=== PATIENT | male | born 1985 | race Caucasian/White ===

== ENCOUNTER 2018-07-04 16:49 | Emergency (ER) | payer MEDICARE, MEDICAID ==
[~2018-07-04] VITALS: Ht 177.8 cm; Wt 85.0 kg
[2018-07-04 17:13] VITALS: BP 100/55
== END 2018-07-04 17:48 | disposition home or self-care (01) ==
LOC: ER 17:46
DX: S01.81XD Laceration without foreign body of other part of head, subsequent encounter (principal); F17.200 Nicotine dependence, unspecified, uncomplicated; X58.XXXD Exposure to other specified factors, subsequent encounter
CPT/HCPCS: 99281

== ENCOUNTER 2022-10-03 18:21 | Inpatient (IN) | payer MEDICARE, MEDICAID ==
[~2022-10-03] VITALS: Ht 182.9 cm; Wt 103.4 kg
[2022-10-03] MEDS ORDERED: KETOROLAC 30MG/ML VIAL IV STA (18:34)
[2022-10-03] MEDS ORDERED: SODIUM CHLORIDE 0.9% 1000ML BAG (SEPSIS BOLUS) IV ONE (18:45)
[2022-10-03] MEDS: AMPICILLIN SOD/SULBACTAM NA 3 G in SODIUM CHLORIDE 0.9% 100 ML IV SCH (18:45)
[2022-10-03 19:37] LABS: CHLORIDE 104 mEq/L (98-107)
[2022-10-03 19:38] LABS: BASOPHILS % 0.5 % (0.0-2.0); HEMATOCRIT. 47.6 % (42.0-52.0); HEMOGLOBIN. 16.5 g/dL (14.0-18.0); LYMPHOCYTES % 9.5 % (20.0-50.0); MEAN CORPUSCULAR HEMOGLOBIN 32.8 pg (28.0-32.0); MEAN CORPUSCULAR VOLUME 94.7 fL (80.0-94.0); MEAN PLATELET VOLUME 8.6 fl (7.4-10.4); MONOCYTES % 4.1 % (2.0-8.0); NEUTROPHILS % 84.9 % (40.0-76.0); PLATELET 173 x1000/uL (130-400); RED BLOOD CELL COUNT 5.03 mill/uL (4.7-6.1); RED CELL DISTRIBUTION WIDTH 13.2 % (11.6-14.6)
[2022-10-03 19:55] LABS: CREATINE KINASE 199 IU/L (39-308); ETHANOL BLOOD < 10 mg/dL
[2022-10-03 20:05] LABS: INR 1.1; PROTHROMBIN TIME 11.4 sec (9.6-11.0)
[2022-10-03] MEDS ORDERED: KETOROLAC 30MG/ML VIAL IV NR (23:00)
[2022-10-04] MEDS: AMPICILLIN SOD/SULBACTAM NA 3 G in SODIUM CHLORIDE 0.9% 100 ML IV SCH ×3 (01:01→21:10)
[2022-10-04 08:44] LABS: CLARITY URINE CLEAR (CLEAR); COLOR URINE YELLOW (YELLOW); PROTEIN URINE NEGATIVE (NEGATIVE); SPECIFIC GRAVITY URINE 1.025 (1.005-1.030)
[2022-10-04 08:45] LABS: KETONES URINE TRACE (NEGATIVE); LEUKOCYTE ESTERASE URINE NEGATIVE (NEGATIVE); NITRITE URINE NEGATIVE (NEGATIVE); OCCULT BLOOD URINE NEGATIVE (NEGATIVE)
[2022-10-04 08:49] LABS: *AMPHETAMINES SCREEN URINE NEGATIVE (NEGATIVE); *BARBITURATES SCREEN URINE NEGATIVE (NEGATIVE); *BENZODIAZEPINES SCREEN URINE NEGATIVE (NEGATIVE); *COCAINE SCREEN URINE NEGATIVE (NEGATIVE); CANNABINOID URINE SCREEN PRESUMTIVE POSITIVE (NEGATIVE); METHADONE URINE SCREEN NEGATIVE (NEGATIVE); OPIATES URINE SCREEN NEGATIVE (NEGATIVE); PHENCYCLIDINE URINE SCREEN NEGATIVE (NEGATIVE)
[2022-10-04] MEDS ORDERED: ONDANSETRON HCL 4MG/2ML INJ IV PRN (11:00)
[2022-10-04] MEDS ORDERED: CLONIDINE 0.1MG TABLET PO PRN (11:00)
[2022-10-04] MEDS ORDERED: IPRATROPIUM/ALBUTEROL 0.5-3(2.5)MG/3ML NEB HHN PRN (11:00)
[2022-10-04] MEDS: ACETAMINOPHEN 325MG TABLET PO PRN ×2 (14:52→21:19)
[2022-10-04 15:45] VITALS: BP 114/74
[2022-10-04 16:00] VITALS: BP 97/57
[2022-10-04] MEDS ORDERED: AMPICILLIN 2,000 MG in SODIUM CHLORIDE 0.9% 100 ML IV SCH (16:30)
[2022-10-04 20:00] VITALS: BP 122/59
[2022-10-04] MEDS ORDERED: TETANUS AND DIPHTHERIA TOX/PF 0.5ML SYR (ADULT) IM ONE (21:00)
[2022-10-05] VITALS: BP 108/73
[2022-10-05] MEDS: DIPHENHYDRAMINE 50MG/ML VIAL IV PRN (02:50)
[2022-10-05 04:00] VITALS: BP 118/65
[2022-10-05] MEDS: AMPICILLIN SOD/SULBACTAM NA 3 G in SODIUM CHLORIDE 0.9% 100 ML IV SCH ×5 (05:09→17:31)
[2022-10-05 08:00] VITALS: BP 114/68
[2022-10-05 12:00] VITALS: BP 111/73
[2022-10-05] MEDS: ACETAMINOPHEN 325MG TABLET PO PRN (12:25)
[2022-10-05 16:00] VITALS: BP 114/73
[2022-10-05] MEDS ORDERED: IOHEXOL-300 100 ML BOTTLE ONE (16:29)
[2022-10-05] MEDS ORDERED: TETANUS AND DIPHTHERIA TOX/PF 0.5ML SYR (ADULT) IM ONE (17:00)
[2022-10-05 17:34] LABS: BASOPHILS % 0.3 % (0.0-2.0); HEMATOCRIT. 46.6 % (42.0-52.0); HEMOGLOBIN. 15.7 g/dL (14.0-18.0); MEAN CORPUSCULAR HEMOGLOBIN 32.3 pg (28.0-32.0); MEAN CORPUSCULAR VOLUME 95.9 fL (80.0-94.0); MEAN PLATELET VOLUME 8.2 fl (7.4-10.4); MONOCYTES % 8.3 % (2.0-8.0); NEUTROPHILS % 75.4 % (40.0-76.0); PLATELET 160 x1000/uL (130-400); RED BLOOD CELL COUNT 4.86 mill/uL (4.7-6.1)
[2022-10-05 17:49] LABS: CHLORIDE 106 mEq/L (98-107)
[2022-10-06] MEDS: ACETAMINOPHEN 325MG TABLET PO PRN ×3 (02:13→22:18)
[2022-10-06] MEDS: DIPHENHYDRAMINE 50MG/ML VIAL IV PRN ×2 (02:13→22:18)
[2022-10-06 05:45] LABS: BASOPHILS % 0.6 % (0.0-2.0); EOSINOPHILS % 2.5 % (0.0-5.0); HEMATOCRIT. 45.1 % (42.0-52.0); HEMOGLOBIN. 15.4 g/dL (14.0-18.0); LYMPHOCYTES % 17.4 % (20.0-50.0); MEAN CORPUSCULAR HEMOGLOBIN 32.4 pg (28.0-32.0); MEAN CORPUSCULAR VOLUME 94.6 fL (80.0-94.0); MEAN PLATELET VOLUME 8.3 fl (7.4-10.4); MONOCYTES % 7.9 % (2.0-8.0); NEUTROPHILS % 71.6 % (40.0-76.0); PLATELET 165 x1000/uL (130-400); RED BLOOD CELL COUNT 4.76 mill/uL (4.7-6.1); RED CELL DISTRIBUTION WIDTH 12.6 % (11.6-14.6)
[2022-10-06] MEDS: AMPICILLIN SOD/SULBACTAM NA 3 G in SODIUM CHLORIDE 0.9% 100 ML IV SCH ×5 (06:00→18:58)
[2022-10-06 08:00] VITALS: BP 113/63
[2022-10-06 12:00] VITALS: BP 121/80
[2022-10-06 16:00] VITALS: BP 111/70
[2022-10-06 20:00] VITALS: BP 121/74
[2022-10-07] VITALS: BP 100/62
[2022-10-07] MEDS: AMPICILLIN SOD/SULBACTAM NA 3 G in SODIUM CHLORIDE 0.9% 100 ML IV SCH ×5 (06:00→17:19)
[2022-10-07 06:29] LABS: BASOPHILS % 0.6 % (0.0-2.0); EOSINOPHILS % 2.9 % (0.0-5.0); HEMATOCRIT. 48.4 % (42.0-52.0); HEMOGLOBIN. 16.8 g/dL (14.0-18.0); LYMPHOCYTES % 21.8 % (20.0-50.0); MEAN CORPUSCULAR HEMOGLOBIN 32.8 pg (28.0-32.0); MEAN CORPUSCULAR VOLUME 94.6 fL (80.0-94.0); MONOCYTES % 7.1 % (2.0-8.0); NEUTROPHILS % 67.6 % (40.0-76.0); PLATELET 182 x1000/uL (130-400); RED BLOOD CELL COUNT 5.11 mill/uL (4.7-6.1); RED CELL DISTRIBUTION WIDTH 12.9 % (11.6-14.6)
[2022-10-07 12:00] VITALS: BP 95/53
[2022-10-07 16:00] VITALS: BP 111/53
[2022-10-07 20:00] VITALS: BP 110/76
[2022-10-07] MEDS: DIPHENHYDRAMINE 50MG/ML VIAL IV PRN (21:27)
[2022-10-07] MEDS: ACETAMINOPHEN 325MG TABLET PO PRN (21:27)
[2022-10-08] MEDS: AMPICILLIN SOD/SULBACTAM NA 3 G in SODIUM CHLORIDE 0.9% 100 ML IV SCH ×3 (00:32→11:21)
[2022-10-08 04:00] VITALS: BP 107/65
[2022-10-08 07:58] LABS: BASOPHILS % 0.8 % (0.0-2.0); EOSINOPHILS % 3.6 % (0.0-5.0); HEMOGLOBIN. 16.4 g/dL (14.0-18.0); LYMPHOCYTES % 20.9 % (20.0-50.0); MEAN CORPUSCULAR HEMOGLOBIN 32.7 pg (28.0-32.0); MEAN CORPUSCULAR VOLUME 93.6 fL (80.0-94.0); MEAN PLATELET VOLUME 7.9 fl (7.4-10.4); MONOCYTES % 6.8 % (2.0-8.0); NEUTROPHILS % 67.9 % (40.0-76.0); PLATELET 181 x1000/uL (130-400); RED BLOOD CELL COUNT 5.02 mill/uL (4.7-6.1); RED CELL DISTRIBUTION WIDTH 12.9 % (11.6-14.6)
[2022-10-08 08:00] VITALS: BP 124/76
[2022-10-08 08:36] LABS: CHLORIDE 108 mEq/L (98-107)
[2022-10-08 12:00] VITALS: BP 109/64
[2022-10-08] MEDS ORDERED: AMOX1TAB16 MT (12:57)
[2022-10-08 13:34] VITALS: BP 109/64
== END 2022-10-08 15:15 | disposition home or self-care (01) | DRG 872 ==
LOC: ER 18:21 → 6EST 10-04 08:23 → EDBEDREQTM 10-04 08:24 → EDBEDREQ 10-04 08:24 → 6EST 10-04 23:06
PROVIDERS: ADMIT Internal Medicine; ATTEND Internal Medicine
DX: A41.9 Sepsis, unspecified organism (principal); L03.114 Cellulitis of left upper limb; L02.512 Cutaneous abscess of left hand; S61.452A Open bite of left hand, initial encounter; Z20.822 Contact with and (suspected) exposure to COVID-19; D72.829 Elevated white blood cell count, unspecified; W54.0XXA Bitten by dog, initial encounter; Y93.89 Activity, other specified; Y92.89 Other specified places as the place of occurrence of the external cause; Y99.8 Other external cause status
CPT/HCPCS: 36415; 73130; 73201; 80048; 80053; 80305; 80320; 81003; 82550; 83605; 84145; 85025; 86141; 87426; 90714; 93005; 93970; 99285; C1893; C9803; J0290; J0295; J1200; J1885; J7030; J7050; Q9967; G0480